=== PATIENT | female | born 1975 | race American Indian/Alaskan Native ===

== ENCOUNTER 2016-04-27 14:10 | Emergency (ER) | payer SELFPAY ==
[2016-04-27 15:32] LABS: Basophils % (Auto) 0.4 % (0.0-1.8); Eosinophils % (Auto) 0.3 % (0.0-4.3); Hematocrit 38.1 % (30.3-42.9); Hemoglobin 12.3 gm/dl (10.1-14.3); Mean Corpuscular HGB Conc 32 % (30-34); Mean Corpuscular Hemoglobin 27 pg (28-32); Mean Corpuscular Volume 84 fl (79-97); Platelet Count 194 K/mm3 (140-440); Red Blood Count 4.54 M/mm3 (3.65-5.03); Red Cell Distribution Width 13.8 % (13.2-15.2); White Blood Count 3.1 K/mm3 (4.5-11.0)
[2016-04-27 15:56] LABS: Alanine Aminotransferase 9 units/L (7-56); Albumin 3.8 g/dL (3.9-5); Albumin/Globulin Ratio 1.2 %; Alkaline Phosphatase 71 units/L (35-129); Anion Gap 17 mmol/L; BUN/Creatinine Ratio 11.42; Bilirubin,Total 0.5 mg/dL (0.1-1.2); Blood Urea Nitrogen 8 mg/dL (7-17); Calcium 8.8 mg/dL (8.4-10.2); Carbon Dioxide 22 mmol/L (22-30); Chloride 103.7 mmol/L (98-107); Glucose 89 mg/dL (65-100); Lipase 18 units/L (13-60); Potassium 3.7 mmol/L (3.6-5.0); Sodium 139 mmol/L (137-145)
[2016-04-27 17:12] LABS: Bilirubin,Urine NEG (Negative); Blood,Urine NEG (Negative); Ketones,Urine NEG (Negative); Leukocyte Esterase,Urine NEG (Negative); Mucus,Urine FEW /HPF; Nitrite,Urine NEG (Negative); Protein,Urine <15 mg/dL mg/dL (Negative); Urobilinogen,Urine < 2.0 mg/dL (<2.0); WBC,Urine < 1.0 /HPF (0.0-6.0)
--- NOTE | 2016-04-27 19:17 | Emergency Department Report ---
Chief Complaint: Abdominal Pain Stated Complaint: GURD/RT SIDE PAIN/ACID REFLUX Time Seen by Provider: 04/27/16 19:10 - HPI History of Present Illness: PT states she has a hx of Gerd. PT c/o R side pain x 1- 2 weeks. PT states she has tried putting muscle rub on her stomach. PT states she has been drinking tala tea and her symptoms have improved. - ROS Review of Systems: + wt loss - while in [facility]. PT states the food was "nasty" + anxiety - n/v - Exam Vital Signs: Vital Signs 04/27/16 04/27/16 14:54 18:53 Temperature 97.4 F L Pulse Rate 70 150 H Respiratory 16 22 Rate Blood Pressure 112/70 Blood Pressure 141/86 [Right] O2 Sat by Pulse 100 100 Oximetry Physical Exam: PT alert, anxious mildy tachycardic at this time lungs cta abd soft and non tender MSE screening note: Focused history and physical exam performed. Due to findings the following was ordered: labs ED Medical Decision Making - Lab Data Result diagrams: 04/27/16 15:20 04/27/16 15:20 ED Disposition for MSE Condition: Stable Instructions: Abdominal Pain (ED) Referrals: PRIMARY CARE, [Primary Care Provider] - 3-5 Days
[2016-04-27] MEDS ORDERED: NORCO 5/325 PO ONE (21:02)
[2016-04-27] MEDS ORDERED: PROTONIX PO ONE (21:02)
[2016-04-27] MEDS ORDERED: NACL 0.9% 500 ML 500 ML IV ONE (21:09)
[2016-04-27] MEDS ORDERED: VALIUM IV ONE (21:09)
[2016-04-27] MEDS ORDERED: PEPCID IV ONE (21:10)
--- NOTE | 2016-04-27 21:23 | Emergency Department Report ---
HPI - General Chief Complaint: Abdominal Pain Time Seen by Provider: 04/27/16 20:10 - HPI HPI: The patient is 40-year-old female presents for evaluation of abdominal pain. The patient reports epigastric abdominal pain since noon yesterday, 30 hrs prior to my eval, burning in quality, moderate to severe, radiating to the midsternal chest, and associated with loose watery stools. The patient denies fever, trauma to the chest or abdomen, chills, night sweats, vomiting, blood in the stool, dark tarry stool, dysuria, hematuria, flank pain, genital discharge, inability to pass flatus. ED Past Medical Hx - Past Medical History Previous Medical History?: Yes Hx GERD: Yes Hx Psychiatric Treatment: Yes (anxiety) - Surgical History Past Surgical History?: Yes - Social History Smoking Status: Never Smoker Substance Use Type: Alcohol - Medications Home Medications: Home Medications Medication Instructions Recorded Confirmed Last Taken Type Cyclobenzaprine HCl [Flexeril 5 MG 5 mg PO Q8HR PRN #15 tab 04/27/16 Unknown Rx TAB] Omeprazole Magnesium [PriLOSEC Otc] 20 mg PO QDAY #14 tablet. 04/27/16 Unknown Rx ED Review of Systems ROS: Stated complaint: GURD/RT SIDE PAIN/ACID REFLUX Other details as noted in HPI Constitutional: denies: fever ENT: denies: throat or neck pain Respiratory: denies: cough, shortness of breath Cardiovascular: denies: chest pain Endocrine: denies unexplained weight loss or gain Gastrointestinal: reports abdominal pain, nausea Genitourinary: denies: dysuria Musculoskeletal: denies: leg swelling Skin: denies: rash Neurological: denies: headache Hematological/Lymphatic: denies: easy bleeding or easy bruising Psych: denies sadness or hopelessness Physical Exam - Physical Exam Vital Signs: Vital Signs 04/27/16 04/27/16 04/27/16 14:54 18:53 21:00 Temperature 97.4 F L Pulse Rate 70 150 H Respiratory 16 22 20 Rate Blood Pressure 112/70 Blood Pressure 141/86 [Right] O2 Sat by Pulse 100 100 Oximetry 04/27/16 21:04 Temperature 98 F Pulse Rate 104 H Respiratory 18 Rate Blood Pressure Blood Pressure 115/58 [Right] O2 Sat by Pulse 100 Oximetry Physical Exam: General: well-nourished, well-developed, no acute distress Head: Normocephalic, atraumatic Eyes: normal sclera ENT: Mucous membranes are pale and dry Neck: trachea midline, neck supple, No neck stiffness, no cervical adenopathy Respiratory: Breath sounds equal bilaterally, no wheezing, rales, or rhonchi Cardio: S1 and S2 present, no murmurs, rubs, gallops, capillary refill is delayed Abdomen: Normoactive bowel sounds, soft abdomen, no rigidity, no guarding or rebound tenderness Musc: No pitting edema Skin: No rash Neuro: no facial drooping, normal speech Psych: Normal affect ED Course Vital Signs 04/27/16 04/27/16 04/27/16 14:54 18:53 21:00 Temperature 97.4 F L Pulse Rate 70 150 H Respiratory 16 22 20 Rate Blood Pressure 112/70 Blood Pressure 141/86 [Right] O2 Sat by Pulse 100 100 Oximetry 04/27/16 21:04 Temperature 98 F Pulse Rate 104 H Respiratory 18 Rate Blood Pressure Blood Pressure 115/58 [Right] O2 Sat by Pulse 100 Oximetry ED Medical Decision Making - Lab Data Result diagrams: 04/27/16 15:20 04/27/16 15:20 - Medical Decision Making The patient was seen and examined by myself. The patient is placed on a hotel valet attendant and continuous pulse ox. On initial evaluation, the patient was found to be in no distress. Evaluation orders were placed. The patient is given 500cc normal saline fluid bolus for treatment of dehydration, and Prilosec , and a tablet of Tylenol for her pain. Lab results reveal elevated RBC, hemoglobin and hematocrit, consistent with hemoconcentration and exam findings of dehydration, and otherwise labs were grossly unremarkable, including normal LFTs, lipase, and negative test. The patient was reevaluated and reported that their symptoms were markedly improved. The patient is stable for discharge with outpatient follow-up. The patient is given follow-up and return instructions. The patient expressed understanding and agreed with the plan. The patient is discharged in stable condition. Critical care attestation.: If time is entered above; I have spent that time in minutes in the direct care of this critically ill patient, excluding procedure time. ED Disposition Clinical Impression: Abdominal pain, acute, epigastric, Dehydration, Orthostatic dizziness Disposition: DISCHARGED TO HOME OR SELFCARE Is pt being admited?: No Does the pt Need Aspirin: No Condition: Stable Instructions: Abdominal Pain (ED), Diet for Ulcers and Gastritis (ED), Peptic Ulcer (ED), Gastritis (ED), Dizziness (ED), Dehydration (ED) Prescriptions: Cyclobenzaprine HCl [Flexeril 5 MG TAB] 5 mg PO Q8HR PRN #15 tab PRN Reason: Pain Omeprazole Magnesium [PriLOSEC Otc] 20 mg PO QDAY #14 tablet. Referrals: PRIMARY CARE, [Primary Care Provider] - 3-5 Days Time of Disposition: 21:14
[2016-04-27] MEDS ORDERED: TYLENOL ONE (22:11)
[2016-04-27] MEDS ORDERED: TYLENOL PO ONE (22:16)
[2016-04-27 23:24] VITALS: BP 125/77
== END 2016-04-27 23:25 | disposition home or self-care (01) ==
LOC: ED 14:10
DX: R10.13 Epigastric pain (principal); E86.0 Dehydration; R42 Dizziness and giddiness; K21.9 Gastro-esophageal reflux disease without esophagitis
CPT/HCPCS: 36415; 80053; 81001; 82962; 83690; 84443; 84484; 84703; 85025; 93005; 93010; 96361; 96374; 99285; J3360; J7040; 96360

== ENCOUNTER 2016-06-27 20:09 | Emergency (ER) | payer MEDICAID ==
[2016-06-27 20:26] VITALS: BP 128/54
[2016-06-27 20:51] LABS: Basophils % (Auto) 0.5 % (0.0-1.8); Hematocrit 40.2 % (30.3-42.9); Hemoglobin 13.1 gm/dl (10.1-14.3); Mean Corpuscular HGB Conc 33 % (30-34); Mean Corpuscular Hemoglobin 28 pg (28-32); Mean Corpuscular Volume 87 fl (79-97); Platelet Count 139 K/mm3 (140-440); Red Cell Distribution Width 14.8 % (13.2-15.2); White Blood Count 6.6 K/mm3 (4.5-11.0)
[2016-06-27 21:06] LABS: Anion Gap 18 mmol/L; BUN/Creatinine Ratio 14.28; Blood Urea Nitrogen 10 mg/dL (7-17); Carbon Dioxide 23 mmol/L (22-30); Chloride 103.7 mmol/L (98-107); Glucose 95 mg/dL (65-100); Potassium 4.3 mmol/L (3.6-5.0); Sodium 140 mmol/L (137-145)
== END 2016-06-28 00:18 | disposition left against medical advice (07) ==
LOC: ED 20:09
DX: R07.9 Chest pain, unspecified (principal); R00.2 Palpitations; Z53.21 Procedure and treatment not carried out due to patient leaving prior to being seen by health care provider
CPT/HCPCS: 36415; 80048; 80164; 84484; 85025; 93005; 93010

== ENCOUNTER 2016-06-29 22:28 | Emergency (ER) | payer MEDICAID ==
[2016-06-29 23:48] LABS: Anion Gap 18 mmol/L; Blood Urea Nitrogen 6 mg/dL (7-17); Carbon Dioxide 23 mmol/L (22-30); Chloride 96.9 mmol/L (98-107); Creatine Kinase 33 units/L (30-135); Creatine Kinase MB < 1.0 ng/mL (0.0-4.0); Glucose 120 mg/dL (65-100); Potassium 3.7 mmol/L (3.6-5.0); Sodium 134 mmol/L (137-145)
[2016-06-30 00:04] LABS: Basophils % (Auto) 0.4 % (0.0-1.8); Eosinophils % (Auto) 0.8 % (0.0-4.3); Hematocrit 39.9 % (30.3-42.9); Hemoglobin 12.8 gm/dl (10.1-14.3); Mean Corpuscular HGB Conc 32 % (30-34); Mean Corpuscular Hemoglobin 28 pg (28-32); Mean Corpuscular Volume 86 fl (79-97); Platelet Count 144 K/mm3 (140-440); Red Blood Count 4.64 M/mm3 (3.65-5.03); Red Cell Distribution Width 14.2 % (13.2-15.2); White Blood Count 6.4 K/mm3 (4.5-11.0)
--- NOTE | 2016-06-30 08:47 | Emergency Department Report ---
HPI - General Chief Complaint: Chest Pain Time Seen by Provider: 06/30/16 08:24 - HPI HPI: This is a 40-year-old -[place] female presents to the emergency department with complaint of a dull ache and/or fluttering in the midsternal right-sided chest that began last night. Patient says she is currently asymptomatic and that has resolved. She denies any shortness of breath, nausea , vomiting, diaphoresis. The patient is on Depakote, propanolol, Zoloft for anxiety and says that she takes these medications are keeping her from getting sleep. She has not had any good satiating sleep the past 6-7 days. She does have history of palpitations in the past. She denies tobacco or drug use or abuse. No recent travel or sick contacts at home. She does not currently have a primary care doctor. [facility] in [facility] for her psychiatric treatment thus far. She did not take anything for symptoms prior to presentation. ED Past Medical Hx - Past Medical History Previous Medical History?: Yes Hx GERD: Yes Hx Psychiatric Treatment: Yes (anxiety) Additional medical history: palpations - Surgical History Past Surgical History?: Yes Additional Surgical History: c-sectionx2. skin graft to head - Social History Smoking Status: Never Smoker Substance Use Type: None - Medications Home Medications: Home Medications Medication Instructions Recorded Confirmed Last Taken Type Cyclobenzaprine HCl [Flexeril 5 MG 5 mg PO Q8HR PRN #15 tab 04/27/16 Unknown Rx TAB] Omeprazole Magnesium [PriLOSEC Otc] 20 mg PO QDAY #14 tablet. 04/27/16 Unknown Rx ALPRAZolam [Xanax TAB] 0.5 mg PO QHS PRN #5 tablet 06/30/16 Unknown Rx ED Review of Systems ROS: Stated complaint: CHEST DISCOMFORT Other details as noted in HPI Comment: All other systems reviewed and negative Constitutional: denies: chills, fever Eyes: denies: eye pain, eye discharge, vision change ENT: denies: ear pain, throat pain Respiratory: denies: cough, shortness of breath, wheezing Cardiovascular: chest pain, palpitations Gastrointestinal: denies: abdominal pain, nausea, diarrhea Genitourinary: denies: urgency, dysuria, discharge Musculoskeletal: denies: back pain, joint swelling, arthralgia Skin: denies: rash, lesions Neurological: denies: headache, weakness, paresthesias Physical Exam - Physical Exam Vital Signs: Vital Signs 06/29/16 22:43 Temperature 98.1 F Pulse Rate 82 Respiratory 18 Rate Blood Pressure 125/77 Blood Pressure 125/77 [Left] O2 Sat by Pulse 100 Oximetry Physical Exam: GENERAL: The patient is well-developed well-nourished. HEENT: Normocephalic. Atraumatic. Extraocular motions are intact. Patient has moist mucous membranes. Pupils equal reactive to light bilaterally. NECK: Supple. Trachea is midline. CHEST/LUNGS: Clear to auscultation. There is no respiratory distress noted. HEART/CARDIOVASCULAR: Regular. There is no tachycardia. There is no gallop rub or murmur. ABDOMEN: Abdomen is soft, nontender. Patient has normal bowel sounds. There is no abdominal distention. SKIN: There is no rash. There is no edema. There is no diaphoresis. NEURO: The patient is awake, alert, and oriented. The patient is cooperative. The patient has no focal neurologic deficits. The patient has normal speech. Cranial nerves II through XII grossly intact. MUSCULOSKELETAL: There is no tenderness or deformity. There is no limitation range of motion. There is no evidence of acute injury. Radial pulse +2 over 4 bilaterally. ED Course Vital Signs 06/29/16 22:43 Temperature 98.1 F Pulse Rate 82 Respiratory 18 Rate Blood Pressure 125/77 Blood Pressure 125/77 [Left] O2 Sat by Pulse 100 Oximetry ED Medical Decision Making - Lab Data Result diagrams: 06/29/16 23:04 06/29/16 23:04 - EKG Data -: EKG Interpreted by Me EKG shows normal: sinus rhythm, axis, intervals, QRS complexes, ST-T waves Rate: normal - EKG Data When compared to previous EKG there are: previous EKG unavailable Interpretation: normal EKG - Radiology Data Radiology results: image reviewed interpreted by me: Chest x-ray did not show any acute process. Heart is normal shape and size. No effusions. No pneumothorax. No signs of pneumonia seen. - Medical Decision Making This is a 40-year-old female presents to the emergency department with complaint of some palpitations and/or a fluttering sensation that goes along with some recent insomnia. The patient has history of anxiety and is on multiple medications for it. She feels that these medications may be the reason for her insomnia but it also may be due to uncontrolled anxiety. Patient is asymptomatic by the time she is gotten to the emergency department. She denies any shortness of breath, actual chest pain, fever. Labs are unremarkable including no signs of infection, electrolyte abnormalities, renal insufficiency, glucose abnormalities. She has normal thyroid function. EKG is completely normal without ST elevation [place], dysrhythmia or ischemia. She was reevaluated multiple times for multiple hours and has remained stable without any further palpitations or any distress. Despite the fact the patient does not have any actual chest pain, she is a BERNARDA score of 0 and very low on the heart score criteria. Without any chest pain, tachycardia, hypoxia or shortness of breath, the patient appears low suspicion for a pulmonary embolism. She is low on the well's score criteria and negative on the pulmonary embolus rule out criteria. She appears safe for discharge home. She has referrals for primary care and psych. She will return to the ER with any worsening of her symptoms or any acute distress. - Differential Diagnosis hyperthyroidism, anxiety/panic, pneumonia Critical Care Time: No Critical care attestation.: If time is entered above; I have spent that time in minutes in the direct care of this critically ill patient, excluding procedure time. ED Disposition Clinical Impression: Palpitations, Fluttering sensation of heart Insomnia Qualifiers: Insomnia type: unspecified Qualified Code(s): G47.00 - Insomnia, unspecified Disposition: DISCHARGED TO HOME OR SELFCARE Is pt being admited?: No Condition: Stable Instructions: Palpitations (ED), Insomnia (ED) Additional Instructions: Please follow-up with a primary care doctor in the next few days. Follow-up with your psychiatrist so that you can talk to them about adjusting your anxiety medications. I have given you a very small amount of low-dose Xanax to take just before sleep to help you with nighttime anxiety and/or insomnia. Return to the emergency department immediately with any return of your palpitations, any chest discomfort or any acute distress. You've been prescribed a medication that is sedating. Therefore this medication cannot be mixed with alcohol, or taken prior to driving, working, or being responsible for children. Prescriptions: ALPRAZolam [Xanax TAB] 0.5 mg PO QHS PRN #5 tablet PRN Reason: Anxiety Referrals: PRIMARY CARE, [Primary Care Provider] - 3-5 Days TONY WELLS MD, PHD [Staff Physician] - 3-5 Days [facility] [Outside] - 3-5 Days [facility] [Outside] - 3-5 Days Time of Disposition: 11:16
--- NOTE | 2016-06-30 11:06 | XRay Report ---
CHEST ONE VIEW INDICATION: Chest pain. COMPARISON: None similar at this institution. FINDINGS: Portable, single, frontal chest radiograph demonstrates normal cardiomediastinal silhouette. Clear lungs. Unremarkable bones. Extrinsic EKG leads. CONCLUSION: No acute disease in the chest. Thank you for the opportunity to participate in this patient's care.
[2016-06-30 11:53] VITALS: BP 116/74
== END 2016-06-30 11:53 | disposition home or self-care (01) ==
LOC: ED 22:28
DX: R00.2 Palpitations (principal); G47.00 Insomnia, unspecified; I49.8 Other specified cardiac arrhythmias; K21.9 Gastro-esophageal reflux disease without esophagitis; F41.9 Anxiety disorder, unspecified
CPT/HCPCS: 36415; 71010; 80048; 82550; 82553; 84443; 85025; 93005; 93010; 99284

== ENCOUNTER 2016-07-01 03:35 | Emergency (ER) | payer MEDICAID ==
[2016-07-01 03:40] VITALS: BP 123/78
[2016-07-01 04:45] LABS: Basophils % (Auto) 0.6 % (0.0-1.8); Eosinophils % (Auto) 1.4 % (0.0-4.3); Hematocrit 38.8 % (30.3-42.9); Hemoglobin 12.8 gm/dl (10.1-14.3); Mean Corpuscular HGB Conc 33 % (30-34); Mean Corpuscular Hemoglobin 28 pg (28-32); Mean Corpuscular Volume 84 fl (79-97); Mean Platelet Volume 8.8 fl (6-12); Platelet Count 151 K/mm3 (140-440); Red Blood Count 4.61 M/mm3 (3.65-5.03); Red Cell Distribution Width 14.2 % (13.2-15.2); White Blood Count 5.6 K/mm3 (4.5-11.0)
[2016-07-01 04:46] LABS: Anion Gap 19 mmol/L; BUN/Creatinine Ratio 15.71; Blood Urea Nitrogen 11 mg/dL (7-17); Calcium 9.3 mg/dL (8.4-10.2); Carbon Dioxide 23 mmol/L (22-30); Chloride 99.9 mmol/L (98-107); Glucose 87 mg/dL (65-100); Partial Thromboplastin Time 29.2 Sec. (24.2-36.6); Potassium 3.7 mmol/L (3.6-5.0); Sodium 138 mmol/L (137-145)
[2016-07-01 04:47] LABS: INR 1.01 (0.87-1.13)
== END 2016-07-01 03:45 | disposition left against medical advice (07) ==
LOC: ED 03:35
DX: R42 Dizziness and giddiness (principal); M79.609 Pain in unspecified limb; R10.9 Unspecified abdominal pain; Z53.21 Procedure and treatment not carried out due to patient leaving prior to being seen by health care provider
CPT/HCPCS: 36415; 80048; 85025; 85610; 85730

== ENCOUNTER 2016-07-01 08:16 | Emergency (ER) | payer MEDICAID ==
[2016-07-01 09:15] LABS: Basophils % (Auto) 0.4 % (0.0-1.8); Eosinophils % (Auto) 1.6 % (0.0-4.3); Hematocrit 38.8 % (30.3-42.9); Hemoglobin 12.7 gm/dl (10.1-14.3); Mean Corpuscular HGB Conc 33 % (30-34); Mean Corpuscular Hemoglobin 28 pg (28-32); Mean Corpuscular Volume 86 fl (79-97); Platelet Count 152 K/mm3 (140-440); Red Blood Count 4.52 M/mm3 (3.65-5.03); Red Cell Distribution Width 14.5 % (13.2-15.2); White Blood Count 5.2 K/mm3 (4.5-11.0)
[2016-07-01 09:17] LABS: Anion Gap 16 mmol/L; BUN/Creatinine Ratio 14.28; Blood Urea Nitrogen 10 mg/dL (7-17); Calcium 9.1 mg/dL (8.4-10.2); Carbon Dioxide 25 mmol/L (22-30); Chloride 99.4 mmol/L (98-107); Glucose 90 mg/dL (65-100); Potassium 3.4 mmol/L (3.6-5.0); Sodium 137 mmol/L (137-145)
[2016-07-01 12:11] LABS: Urine Drugs of Abuse Note Disclamer
[2016-07-01 12:32] LABS: Bilirubin,Urine NEG (Negative); Blood,Urine LG (Negative); Ketones,Urine TR mg/dL (Negative); Leukocyte Esterase,Urine NEG (Negative); Nitrite,Urine NEG (Negative); Protein,Urine <15 mg/dL mg/dL (Negative); RBC,Urine > 182.0 /HPF (0.0-6.0); Urobilinogen,Urine < 2.0 mg/dL (<2.0)
--- NOTE | 2016-07-01 14:51 | Emergency Department Report ---
ED Abdominal Pain HPI - General Chief Complaint: Abdominal Pain Stated Complaint: LEFT AND RT LEG CHEST DISCOMFORT Time Seen by Provider: 07/01/16 14:40 Source: patient, EMS Mode of arrival: Ambulatory Limitations: No Limitations - History of Present Illness MD Complaint: abdominal pain -: Gradual Location: diffuse, RUQ Radiation: none Migration to: no migration Severity: mild Severity scale (0 -10): 2 Quality: cramping Consistency: intermittent Improves With: nothing Worsens With: nothing Associated Symptoms: denies: nausea, vomiting, diarrhea, fever, chills, constipation, dysuria, hematemesis, melena, hematuria, anorexia, syncope - Related Data Home Medications Medication Instructions Recorded Confirmed Last Taken Divalproex Dr [DepaKOTE DR] 500 mg PO QHS 07/01/16 07/01/16 06/30/16 Propranolol [Inderal] 10 mg PO ONCE 07/01/16 07/01/16 07/01/16 Sertraline [Zoloft] 25 mg PO QDAY 07/01/16 07/01/16 07/01/16 Allergies Allergy/AdvReac Type Severity Reaction Status Date / Time paroxetine HCl [From Paxil] Allergy Itching Verified 06/29/16 22:49 Penicillins Allergy Swelling Verified 06/29/16 22:49 ED Review of Systems ROS: Stated complaint: LEFT AND RT LEG CHEST DISCOMFORT Other details as noted in HPI Comment: All other systems reviewed and negative ED Past Medical Hx - Past Medical History Previous Medical History?: Yes Hx GERD: Yes Hx Psychiatric Treatment: Yes (anxiety) Additional medical history: palpations - Surgical History Past Surgical History?: Yes Additional Surgical History: c-sectionx2. skin graft to head - Social History Smoking Status: Never Smoker Substance Use Type: Alcohol, Prescribed - Medications Home Medications: Home Medications Medication Instructions Recorded Confirmed Last Taken Type Divalproex Dr [DepaKOTE DR] 500 mg PO QHS 07/01/16 07/01/16 06/30/16 History Propranolol [Inderal] 10 mg PO ONCE 07/01/16 07/01/16 07/01/16 History Sertraline [Zoloft] 25 mg PO QDAY 07/01/16 07/01/16 07/01/16 History ED Physical Exam - General Limitations: No Limitations General appearance: alert, in no apparent distress - Head Head exam: Present: atraumatic, normocephalic - Eye Eye exam: Present: normal appearance - ENT ENT exam: Present: mucous membranes moist - Neck Neck exam: Present: normal inspection - Respiratory Respiratory exam: Present: normal lung sounds bilaterally. Absent: respiratory distress - Cardiovascular Cardiovascular Exam: Present: regular rate, normal rhythm. Absent: systolic murmur, diastolic murmur, rubs, gallop - GI/Abdominal GI/Abdominal exam: Present: soft, normal bowel sounds. Absent: distended, tenderness, guarding, rebound - Extremities Exam Extremities exam: Present: normal inspection - Back Exam Back exam: Present: normal inspection - Neurological Exam Neurological exam: Present: alert, oriented X3 - Psychiatric Psychiatric exam: Present: normal affect, normal mood - Skin Skin exam: Present: warm, dry, intact, normal color. Absent: rash ED Course Vital Signs 07/01/16 08:36 Temperature 97.5 F L Pulse Rate 81 Respiratory 28 H Rate Blood Pressure 134/90 O2 Sat by Pulse 100 Oximetry ED Medical Decision Making - Lab Data Result diagrams: 07/01/16 08:47 07/01/16 08:47 - Radiology Data Radiology results: report reviewed, image reviewed - Medical Decision Making patient with her 4th visit for similar complaints, exam is benign and labs and US are normal, we talked and even offer admission but she wants to go home and follow up as outpatient,. Critical care attestation.: If time is entered above; I have spent that time in minutes in the direct care of this critically ill patient, excluding procedure time. ED Disposition Clinical Impression: Abdominal pain Disposition: DISCHARGED TO HOME OR SELFCARE Is pt being admited?: No Does the pt Need Aspirin: No Condition: Good Instructions: Abdominal Pain (ED) Referrals: PRIMARY CARE, [Primary Care Provider] - 3-5 Days Time of Disposition: 16:43
--- NOTE | 2016-07-01 15:47 | Ultrasound Report ---
ABDOMINAL ULTRASOUND: History: Right upper quadrant pain. Findings: The gallbladder dimensions are within normal limits without intraluminal stone, wall thickening, or pericholecystic fluid. The kidneys demonstrate no hydronephrosis or mass. Cortical thickness and echogenicity are within normal limits bilaterally. The spleen and aorta are within normal limits. No aneurysmal dilatation is noted. Visualized portions of the pancreas including the head and proximal body are within normal limits. IMPRESSION: Normal abdominal ultrasound.
[2016-07-01 17:35] VITALS: BP 132/86
== END 2016-07-01 17:36 | disposition home or self-care (01) ==
LOC: ED 08:16
DX: R10.11 Right upper quadrant pain (principal); K21.9 Gastro-esophageal reflux disease without esophagitis; F41.9 Anxiety disorder, unspecified; Z88.0 Allergy status to penicillin; Z88.8 Allergy status to other drugs, medicaments and biological substances
CPT/HCPCS: 36415; 76700; 80048; 80307; 81001; 81025; 85025; 99284; G0480; 80320; 85610; 85730

== ENCOUNTER 2016-07-07 21:33 | Emergency (ER) | payer MEDICAID ==
[2016-07-07 22:25] LABS: Basophils % (Auto) 0.6 % (0.0-1.8); Eosinophils % (Auto) 2.5 % (0.0-4.3); Hematocrit 37.6 % (30.3-42.9); Hemoglobin 12.4 gm/dl (10.1-14.3); Mean Corpuscular HGB Conc 33 % (30-34); Mean Corpuscular Hemoglobin 29 pg (28-32); Mean Corpuscular Volume 86 fl (79-97); Platelet Count 185 K/mm3 (140-440); Red Blood Count 4.36 M/mm3 (3.65-5.03); Red Cell Distribution Width 14.3 % (13.2-15.2); White Blood Count 4.1 K/mm3 (4.5-11.0)
[2016-07-07 22:45] LABS: Anion Gap 18 mmol/L; BUN/Creatinine Ratio 12.85; Blood Urea Nitrogen 9 mg/dL (7-17); Calcium 8.5 mg/dL (8.4-10.2); Carbon Dioxide 22 mmol/L (22-30); Chloride 103.5 mmol/L (98-107); Glucose 95 mg/dL (65-100); Potassium 4.1 mmol/L (3.6-5.0); Sodium 139 mmol/L (137-145)
--- NOTE | 2016-07-08 08:58 | Emergency Department Report ---
ED General Adult HPI - General Chief complaint: Chest Pain Stated complaint: RAPID HEART BEAT/PAIN Time Seen by Provider: 07/08/16 08:20 Source: patient Mode of arrival: Ambulatory Limitations: No Limitations - History of Present Illness Initial comments: Patient tells me that she is planning to go over to [facility]. She's had modification of her psychiatric medications recently to include changes in her Depakote for a "mood disorder". She is also on Zoloft primarily for anxiety she states. She states that she was recently decreased in her propranolol dosing. She believes that the decrease in her medicines is now making her heart race. 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 She is still concerned that her heart is racing. She tells me that she felt a very brief chest discomfort in the left lateral chest which did not radiate last night. She is not complaining of any nausea sweating diaphoresis dizziness or respiratory symptoms at this time. -: days(s) (concern about heart racing for less than a day) Location: chest (had chest pain for less than a minute) Radiation: non-radiation Quality: aching Consistency: now resolved Improves with: none Worsens with: none Associated Symptoms: denies other symptoms (except admits anxiety) - Related Data Home Medications Medication Instructions Recorded Confirmed Last Taken Divalproex Dr [DepaKOTE DR] 500 mg PO QHS 07/01/16 07/01/16 06/30/16 Propranolol [Inderal] 10 mg PO ONCE 07/01/16 07/01/16 07/01/16 Sertraline [Zoloft] 25 mg PO QDAY 07/01/16 07/01/16 07/01/16 Previous Rx's Medication Instructions Recorded Last Taken Type Nitrofurantoin [place]/M-Cryst 100 mg PO Q12HR #14 capsule 07/01/16 Unknown Rx [Macrobid CAP] Allergies Allergy/AdvReac Type Severity Reaction Status Date / Time paroxetine HCl [From Paxil] Allergy Itching Verified 06/29/16 22:49 Penicillins Allergy Swelling Verified 06/29/16 22:49 ED Review of Systems ROS: Stated complaint: RAPID HEART BEAT/PAIN Other details as noted in HPI Constitutional: denies: chills, fever Eyes: denies: eye pain, eye discharge, vision change ENT: denies: ear pain, throat pain Respiratory: denies: cough, shortness of breath, wheezing Cardiovascular: chest pain, palpitations Endocrine: no symptoms reported Gastrointestinal: denies: abdominal pain, nausea, diarrhea Genitourinary: denies: urgency, dysuria, discharge Musculoskeletal: denies: back pain, joint swelling, arthralgia Skin: denies: rash, lesions Neurological: denies: headache, weakness, paresthesias Psychiatric: denies: anxiety, depression Hematological/Lymphatic: denies: easy bleeding, easy bruising ED Past Medical Hx - Past Medical History Previous Medical History?: Yes Hx GERD: Yes Hx Psychiatric Treatment: Yes (anxiety) Additional medical history: palpations - Surgical History Past Surgical History?: Yes Additional Surgical History: c-sectionx2. skin graft to head - Social History Smoking Status: Never Smoker Substance Use Type: None - Medications Home Medications: Home Medications Medication Instructions Recorded Confirmed Last Taken Type Divalproex Dr [DepaKOTE DR] 500 mg PO QHS 07/01/16 07/01/16 06/30/16 History Nitrofurantoin [place]/M-Cryst 100 mg PO Q12HR #14 capsule 07/01/16 Unknown Rx [Macrobid CAP] Propranolol [Inderal] 10 mg PO ONCE 07/01/16 07/01/16 07/01/16 History Sertraline [Zoloft] 25 mg PO QDAY 07/01/16 07/01/16 07/01/16 History ED Physical Exam - General Limitations: No Limitations General appearance: alert, in no apparent distress, anxious - Head Head exam: Present: atraumatic, normocephalic - Eye Eye exam: Present: normal appearance. Absent: scleral icterus - ENT ENT exam: Present: mucous membranes moist - Neck Neck exam: Present: normal inspection - Respiratory Respiratory exam: Present: normal lung sounds bilaterally. Absent: respiratory distress - Cardiovascular Cardiovascular Exam: Present: regular rate, normal rhythm. Absent: systolic murmur, diastolic murmur, rubs, gallop - GI/Abdominal GI/Abdominal exam: Present: soft, normal bowel sounds. Absent: distended, tenderness, guarding, rebound, rigid - Extremities Exam Extremities exam: Present: normal inspection, full ROM, normal capillary refill. Absent: pedal edema, calf tenderness - Back Exam Back exam: Present: normal inspection - Neurological Exam Neurological exam: Present: alert, oriented X3, CN II-XII intact. Absent: motor sensory deficit - Psychiatric Psychiatric exam: Present: normal affect, normal mood - Skin Skin exam: Present: warm, dry, intact, normal color. Absent: rash ED Course Vital Signs 07/07/16 07/08/16 07/08/16 22:08 08:19 08:20 Temperature 97.6 F Pulse Rate 63 58 L Respiratory 20 12 11 L Rate Blood Pressure 127/76 O2 Sat by Pulse 100 100 Oximetry 07/08/16 08:34 Temperature Pulse Rate Respiratory 11 L Rate Blood Pressure O2 Sat by Pulse 100 Oximetry - Reevaluation(s) Reevaluation #1: Patient without chest pain this morning. Resting comfortably. Has a tendency to repeatedly stare at the monitor. Mildly anxious. 07/08/16 09:38 ED Medical Decision Making - Lab Data Result diagrams: 07/07/16 22:17 07/07/16 22:17 Laboratory Results - last 24 hr 07/07/16 07/07/16 07/08/16 22:17 22:17 02:01 WBC 4.1 L RBC 4.36 Hgb 12.4 Hct 37.6 MCV 86 MCH 29 MCHC 33 RDW 14.3 Plt Count 185 Lymph % (Auto) 33.9 [place] % (Auto) 12.9 H Eos % (Auto) 2.5 Baso % (Auto) 0.6 Lymph # 1.4 [place] # 0.5 Eos # 0.1 Baso # 0.0 Seg Neutrophils % 50.1 Seg Neutrophils # 2.0 Sodium 139 Potassium 4.1 Chloride 103.5 Carbon Dioxide 22 Anion Gap 18 BUN 9 Creatinine 0.7 Estimated GFR > 60 BUN/Creatinine Ratio 12.85 Glucose 95 Calcium 8.5 Troponin T < 0.010 < 0.010 07/08/16 04:11 WBC RBC Hgb Hct MCV MCH MCHC RDW Plt Count Lymph % (Auto) [place] % (Auto) Eos % (Auto) Baso % (Auto) Lymph # [place] # Eos # Baso # Seg Neutrophils % Seg Neutrophils # Sodium Potassium Chloride Carbon Dioxide Anion Gap BUN Creatinine Estimated GFR BUN/Creatinine Ratio Glucose Calcium Troponin T < 0.010 - EKG Data -: EKG Interpreted by [place] EKG shows normal: sinus rhythm, axis, intervals, QRS complexes, ST-T waves Rate: normal - EKG Data Interpretation: no acute changes Critical care attestation.: If time is entered above; I have spent that time in minutes in the direct care of this critically ill patient, excluding procedure time. ED Disposition Clinical Impression: Anxiety, Palpitations Disposition: DISCHARGED TO HOME OR SELFCARE Is pt being admited?: No Does the pt Need Aspirin: No Condition: Stable Instructions: Palpitations (ED), Anxiety (ED) Additional Instructions: Return any acute change or problem as needed. Follow-up with your mental health provider at [place]. I am also going to give you some information about the primary care clinic nearby. Referrals: PRIMARY MD ARMEN [Primary Care Provider] - 3-5 Days [facility] [Provider Group] - 3-5 Days Time of Disposition: 09:40
[2016-07-08 09:44] VITALS: BP 115/70
== END 2016-07-08 09:44 | disposition home or self-care (01) ==
LOC: ED 21:33
DX: F41.9 Anxiety disorder, unspecified (principal); K21.9 Gastro-esophageal reflux disease without esophagitis; Z88.0 Allergy status to penicillin; Z88.8 Allergy status to other drugs, medicaments and biological substances
CPT/HCPCS: 36415; 80048; 84484; 85025; 93005; 93010

== ENCOUNTER 2016-07-11 07:46 | Emergency (ER) | payer MEDICAID ==
[2016-07-11 08:50] LABS: Alanine Aminotransferase 11 units/L (7-56); Albumin/Globulin Ratio 1.5 %; Alkaline Phosphatase 61 units/L (35-129); Anion Gap 16 mmol/L; BUN/Creatinine Ratio 13.33; Blood Urea Nitrogen 8 mg/dL (7-17); Calcium 8.9 mg/dL (8.4-10.2); Carbon Dioxide 27 mmol/L (22-30); Chloride 102.8 mmol/L (98-107); Glucose 102 mg/dL (65-100); Lipase 17 units/L (13-60); Potassium 3.9 mmol/L (3.6-5.0); Sodium 142 mmol/L (137-145); Total Protein 6.7 g/dL (6.3-8.2)
[2016-07-11 08:52] LABS: Basophils % (Auto) 0.5 % (0.0-1.8); Eosinophils % (Auto) 2.6 % (0.0-4.3); Hematocrit 38.6 % (30.3-42.9); Hemoglobin 12.4 gm/dl (10.1-14.3); Mean Corpuscular HGB Conc 32 % (30-34); Mean Corpuscular Hemoglobin 28 pg (28-32); Mean Corpuscular Volume 86 fl (79-97); Platelet Count 182 K/mm3 (140-440); Red Blood Count 4.49 M/mm3 (3.65-5.03); Red Cell Distribution Width 14.4 % (13.2-15.2); White Blood Count 3.3 K/mm3 (4.5-11.0)
[2016-07-11 08:58] LABS: Bilirubin,Urine NEG (Negative); Blood,Urine NEG (Negative); Ketones,Urine NEG (Negative); Leukocyte Esterase,Urine NEG (Negative); Mucus,Urine FEW /HPF; Nitrite,Urine NEG (Negative); Protein,Urine <15 mg/dL mg/dL (Negative); Urobilinogen,Urine < 2.0 mg/dL (<2.0)
--- NOTE | 2016-07-11 10:33 | Emergency Department Report ---
HPI - General Chief Complaint: Abdominal Pain Time Seen by Provider: 07/11/16 10:21 - HPI HPI: Room 1 The patient is a 40-year-old female presenting with a chief complaint of abdominal pain. Patient states for the past several months she's had intermittent pain in the right lower quadrant but has never sought medical attention. Patient states pain returned last night has been intermittent. Patient states it resolved last night however when she awakened this morning the pain returned. Patient states it made her feel dizzy and nauseous. Patient describes the pain as pressure-like and sharp in nature. Patient denies dysuria, hematuria, vaginal discharge or fever. The patient currently gives her pain a score of 5/10 Location: Right lower quadrant Duration: Intermittent times months Quality:, Sharp, Pressure Severity: 5/10 Modifying factors: [see above] Context: [see above] Mode of transportation: [not driving] ED Past Medical Hx - Past Medical History Previous Medical History?: Yes Hx GERD: Yes Hx Psychiatric Treatment: Yes (anxiety) Additional medical history: palpations, ovarian cyst - Surgical History Past Surgical History?: Yes Additional Surgical History: c-sectionx2. skin graft to head - Family History Family history: no significant - Social History Smoking Status: Former Smoker (none 5-6 years) Substance Use Type: None (denies illicit drug use), Alcohol (none 2 years), Prescribed - Medications Home Medications: Home Medications Medication Instructions Recorded Confirmed Last Taken Type Divalproex [Perez MENDEZ] 500 mg PO QHS 07/01/16 07/01/16 06/30/16 History Nitrofurantoin [place]/M-Cryst 100 mg PO Q12HR #14 capsule 07/01/16 Unknown Rx [Macrobid CAP] Propranolol [Inderal] 10 mg PO ONCE 07/01/16 07/01/16 07/01/16 History Sertraline [Zoloft] 25 mg PO QDAY 07/01/16 07/01/16 07/01/16 History HYDROcodone/APAP 5-325 [[place] 1 - 2 each PO Q6HR PRN #14 tablet 07/11/16 Unknown Rx 5/325] Ibuprofen [Motrin 800 MG tab] 800 mg PO Q8HR PRN #20 tablet 07/11/16 Unknown Rx ED Review of Systems ROS: Stated complaint: STOMACH PAIN/DIZZY Other details as noted in HPI Comment: All other systems reviewed and negative Constitutional: denies: chills, fever Eyes: denies: eye pain, eye discharge, vision change ENT: denies: ear pain, throat pain Respiratory: denies: cough, shortness of breath, wheezing Cardiovascular: denies: chest pain, palpitations Endocrine: no symptoms reported Gastrointestinal: abdominal pain, nausea. denies: vomiting Genitourinary: abnormal menses (LMP 07/03/2016 earlier than anticipated). denies: urgency, dysuria, hematuria, discharge Musculoskeletal: denies: back pain, joint swelling, arthralgia Skin: denies: rash, lesions Neurological: denies: headache, weakness, paresthesias Psychiatric: denies: anxiety, depression Hematological/Lymphatic: denies: easy bleeding, easy bruising Physical Exam - Physical Exam Vital Signs: Vital Signs 07/11/16 07/11/16 08:05 10:22 Temperature 98 F Pulse Rate 66 61 Respiratory 18 20 Rate Blood Pressure 112/67 Blood Pressure 119/57 [Right] O2 Sat by Pulse 100 100 Oximetry Physical Exam: GENERAL: The patient is well-developed well-nourished female lying on stretcher not appearing to be in acute distress. [] HEENT: Normocephalic. Atraumatic. Extraocular motions are intact. Patient has moist mucous membranes. NECK: Supple. Trachea midline CHEST/LUNGS: Clear to auscultation. There is no respiratory distress noted. HEART/CARDIOVASCULAR: Regular. There is no tachycardia. There is no gallop rub or murmur. ABDOMEN: Abdomen is soft, with tenderness to palpation in the right lower quadrant and suprapubic region. Patient has normal bowel sounds. There is no abdominal distention. SKIN: There is no rash. There is no edema. There is no diaphoresis. NEURO: The patient is awake, alert, and oriented. The patient is cooperative. The patient has normal speech MUSCULOSKELETAL: There is no evidence of acute injury. ED Course Vital Signs 07/11/16 07/11/16 08:05 10:22 Temperature 98 F Pulse Rate 66 61 Respiratory 18 20 Rate Blood Pressure 112/67 Blood Pressure 119/57 [Right] O2 Sat by Pulse 100 100 Oximetry - Reevaluation(s) Reevaluation #1: 07/11/16 12:13 Patient states she currently feels "fine." ED Medical Decision Making - Lab Data Result diagrams: 07/11/16 08:18 07/11/16 08:18 Laboratory Tests 07/11/16 07/11/16 07/11/16 08:18 08:18 08:20 WBC 3.3 L RBC 4.49 Hgb 12.4 Hct 38.6 MCV 86 MCH 28 MCHC 32 RDW 14.4 Plt Count 182 Lymph % (Auto) 32.1 [place] % (Auto) 8.6 H Eos % (Auto) 2.6 Baso % (Auto) 0.5 Lymph # 1.1 L [place] # 0.3 Eos # 0.1 Baso # 0.0 Seg Neutrophils % 56.2 Seg Neutrophils # 1.9 Sodium 142 Potassium 3.9 Chloride 102.8 Carbon Dioxide 27 Anion Gap 16 BUN 8 Creatinine 0.6 L Estimated GFR > 60 BUN/Creatinine Ratio 13.33 Glucose 102 H Calcium 8.9 Total Bilirubin 0.40 AST 12 ALT 11 Alkaline Phosphatase 61 Total Protein 6.7 Albumin 4.0 Albumin/Globulin Ratio 1.5 Lipase 17 Urine Color Yellow Urine Turbidity Clear Urine pH 7.0 Ur Specific [place] 1.013 Urine Protein <15 mg/dl Urine Glucose (UA) Neg Urine Ketones Neg Urine Blood Neg Urine Nitrite Neg Urine Bilirubin Neg Urine Urobilinogen < 2.0 Ur Leukocyte Esterase Neg Urine WBC (Auto) 1.0 Urine RBC (Auto) 4.0 U Epithel Cells (Auto) 1.0 Urine Mucus Few Urine HCG, Qual 07/11/16 10:00 WBC RBC Hgb Hct MCV MCH MCHC RDW Plt Count Lymph % (Auto) [place] % (Auto) Eos % (Auto) Baso % (Auto) Lymph # [place] # Eos # Baso # Seg Neutrophils % Seg Neutrophils # Sodium Potassium Chloride Carbon Dioxide Anion Gap BUN Creatinine Estimated GFR BUN/Creatinine Ratio Glucose Calcium Total Bilirubin AST ALT Alkaline Phosphatase Total Protein Albumin Albumin/Globulin Ratio Lipase Urine Color Urine Turbidity Urine pH Ur Specific [place] Urine Protein Urine Glucose (UA) Urine Ketones Urine Blood Urine Nitrite Urine Bilirubin Urine Urobilinogen Ur Leukocyte Esterase Urine WBC (Auto) Urine RBC (Auto) U Epithel Cells (Auto) Urine Mucus Urine HCG, Qual Negative - Radiology Data Radiology results: report reviewed (CT abdomen and pelvis), image reviewed (CT abdomen and pelvis) CT abdomen and pelvis (read by radiologist)- cyst right adnexa. Moderate amount of fluid in the cul-de-sac. The appendix appears unremarkable. - Differential Diagnosis , ectopic , ovarian cyst, appendicitis Critical care attestation.: If time is entered above; I have spent that time in minutes in the direct care of this critically ill patient, excluding procedure time. ED Disposition Clinical Impression: Ovarian cyst, right Disposition: DISCHARGED TO HOME OR SELFCARE Is pt being admited?: No Does the pt Need Aspirin: No Condition: Stable Instructions: Abdominal Pain (ED), Ovarian Cyst (ED) Additional Instructions: Return to the emergency department immediately should you develop worsening symptoms, fever, inability to tolerate food or liquid or any other concerns. Prescriptions: HYDROcodone/APAP 5-325 [[place] 5/325] 1 - 2 each PO Q6HR PRN #14 tablet PRN Reason: Pain Ibuprofen [Motrin 800 MG tab] 800 mg PO Q8HR PRN #20 tablet PRN Reason: Pain Referrals: PRIMARY CARE,MD [Primary Care Provider] - 3-5 Days your, [facility] [Other] - [place] Time of Disposition: 12:16
[2016-07-11] MEDS ORDERED: MORPHINE IV ONE (10:40)
[2016-07-11] MEDS ORDERED: ZOFRAN IV ONE (10:40)
[2016-07-11] MEDS ORDERED: NACL ONE (10:41)
--- NOTE | 2016-07-11 12:06 | Cat Scan Report ---
CT scan abdomen pelvis with IV contrast: History: Right lower quadrant abdominal pain. Findings: Normal lung bases. No pleural or pericardial effusion. Normal liver spleen pancreas and gallbladder. Normal adrenals and kidney parenchyma and bladder. Moderate amount of fluid noted in the right side of the posterior cul-de-sac. There is a small cyst identified at the right adnexa measuring 1.4 cm in diameter. The appendix appears unremarkable. No evidence of appendicitis. No evidence of diverticulitis. Gaseous colon with small volume stool in colon. No bowel distention. Impression: Cyst right adnexa. Moderate amount of fluid in the cul-de-sac.
[2016-07-11 13:05] VITALS: BP 119/64
== END 2016-07-11 13:06 | disposition home or self-care (01) ==
LOC: ED 07:46
DX: N83.201 Unspecified ovarian cyst, right side (principal); K21.9 Gastro-esophageal reflux disease without esophagitis; Z87.891 Personal history of nicotine dependence
CPT/HCPCS: 36415; 74177; 80053; 81001; 81025; 83690; 85025; 99284; J2270; J2405; Q9967

== ENCOUNTER 2016-07-14 09:02 | Emergency (ER) | payer MEDICAID ==
[2016-07-14 09:33] VITALS: BP 116/73
--- NOTE | 2016-07-14 09:34 | Emergency Department Report ---
ED Anxiety HPI - General Chief Complaint: Anxiety Stated Complaint: RAPID HEART RATE/HBP Time Seen by Provider: 07/14/16 09:30 Source: patient Mode of arrival: Ambulatory Limitations: No Limitations - History of Present Illness Initial Comments: She states she's been checking her vital signs at home with wrist blood pressure cuff, and is worried that her blood pressure and her heart rate are elevated because she's being weaned down off of her Zoloft medication. Patient denies any suicidal/homicidal thoughts or ideation also denies any auditory or visual hallucinations. Patient denies chest pain, nausea vomiting, diaphoresis , or shortness of breath. Patient now states that she feels that her blood pressure is normal and heart rate is normal, but gets intermittent episodes with her elevated. MD Complaint: anxiety -: Sudden Symptoms: other (anxious because patient is being weaned off of her meds.) Quality: intermittant, improving Associated symptoms: shortness of breath, palpitations. denies: diaphoresis - Related Data Home Medications: Home Medications Medication Instructions Recorded Confirmed Last Taken Divalproex Dr [DepaKOTE DR] 500 mg PO QHS 07/01/16 07/01/16 06/30/16 Propranolol [Inderal] 10 mg PO ONCE 07/01/16 07/01/16 07/01/16 Sertraline [Zoloft] 25 mg PO QDAY 07/01/16 07/01/16 07/01/16 Previous Rx's Medication Instructions Recorded Last Taken Type Nitrofurantoin [place]/M-Cryst 100 mg PO Q12HR #14 capsule 07/01/16 Unknown Rx [Macrobid CAP] HYDROcodone/APAP 5-325 [[place] 1 - 2 each PO Q6HR PRN #14 tablet 07/11/16 Unknown Rx 5/325] Ibuprofen [Motrin 800 MG tab] 800 mg PO Q8HR PRN #20 tablet 07/11/16 Unknown Rx Allergies/Adverse Reactions: Allergies Allergy/AdvReac Type Severity Reaction Status Date / Time paroxetine HCl [From Paxil] Allergy Itching Verified 07/11/16 10:48 Penicillins Allergy Swelling Verified 07/11/16 10:48 ED Review of Systems ROS: Stated complaint: RAPID HEART RATE/HBP Other details as noted in HPI Constitutional: denies: chills, fever Eyes: denies: eye pain, eye discharge, vision change ENT: denies: ear pain, throat pain Respiratory: denies: cough, orthopnea, shortness of breath, SOB with exertion, SOB at rest, wheezing Cardiovascular: palpitations. denies: chest pain, edema, syncope, paroxysmal nocturnal dyspnea (Zoloft) Endocrine: no symptoms reported Gastrointestinal: denies: abdominal pain, nausea, vomiting, diarrhea, constipation Genitourinary: denies: urgency, dysuria, discharge Musculoskeletal: denies: back pain, joint swelling, arthralgia Skin: denies: rash, lesions Neurological: denies: headache, weakness, numbness, paresthesias, confusion, abnormal gait, vertigo Psychiatric: anxiety. denies: depression, auditory hallucinations, visual hallucinations, homicidal thoughts, suicidal thoughts Hematological/Lymphatic: denies: easy bleeding, easy bruising ED Past Medical Hx - Past Medical History Previous Medical History?: Yes Hx GERD: Yes Hx Psychiatric Treatment: Yes (anxiety) Additional medical history: palpations, ovarian cyst - Surgical History Past Surgical History?: Yes Additional Surgical History: c-sectionx2. skin graft to head - Social History Smoking Status: Current Every Day Smoker Substance Use Type: Alcohol, Prescribed - Medications Home Medications: Home Medications Medication Instructions Recorded Confirmed Last Taken Type Divalproex Dr [DepaKOTE DR] 500 mg PO QHS 07/01/16 07/01/16 06/30/16 History Nitrofurantoin [place]/M-Cryst 100 mg PO Q12HR #14 capsule 07/01/16 Unknown Rx [Macrobid CAP] Propranolol [Inderal] 10 mg PO ONCE 07/01/16 07/01/16 07/01/16 History Sertraline [Zoloft] 25 mg PO QDAY 07/01/16 07/01/16 07/01/16 History HYDROcodone/APAP 5-325 [[place] 1 - 2 each PO Q6HR PRN #14 tablet 07/11/16 Unknown Rx 5/325] Ibuprofen [Motrin 800 MG tab] 800 mg PO Q8HR PRN #20 tablet 07/11/16 Unknown Rx ED Physical Exam - General Limitations: No Limitations General appearance: alert, in no apparent distress - Head Head exam: Present: atraumatic, normocephalic - Eye Eye exam: Present: normal appearance, PERRL, EOMI Pupils: Present: normal accommodation - ENT ENT exam: Present: normal exam, mucous membranes moist - Neck Neck exam: Present: normal inspection. Absent: tenderness, meningismus, full ROM, lymphadenopathy - Respiratory Respiratory exam: Present: normal lung sounds bilaterally. Absent: respiratory distress, wheezes, rales, rhonchi, stridor, chest wall tenderness, accessory muscle use, decreased breath sounds, prolonged expiratory - Cardiovascular Cardiovascular Exam: Present: regular rate, normal rhythm. Absent: systolic murmur, diastolic murmur, rubs, gallop - GI/Abdominal GI/Abdominal exam: Present: soft. Absent: distended, tenderness, guarding - Extremities Exam Extremities exam: Present: normal inspection. Absent: pedal edema - Back Exam Back exam: Present: normal inspection, full ROM - Neurological Exam Neurological exam: Present: alert, oriented X3, CN II-XII intact. Absent: altered - Psychiatric Psychiatric exam: Present: normal affect, normal mood. Absent: depressed, agitated - Skin Skin exam: Present: warm, dry, intact, normal color. Absent: rash ED Course Vital Signs 07/14/16 07/14/16 09:18 09:33 Temperature 98.2 F Pulse Rate 83 67 Respiratory 20 16 Rate Blood Pressure 132/66 Blood Pressure 116/73 [Left] O2 Sat by Pulse 100 100 Oximetry - Reevaluation(s) Reevaluation #1: 07/14/16 10:07 normotensive normocardic, behavior nonsuicidal or homicidal.... Critical care attestation.: If time is entered above; I have spent that time in minutes in the direct care of this critically ill patient, excluding procedure time. ED Disposition Clinical Impression: Anxiety Disposition: DISCHARGED TO HOME OR SELFCARE Is pt being admited?: No Condition: Stable Instructions: Generalized Anxiety Disorder (ED) Referrals: CORY KAM MD [Referring] - 3-5 Days
== END 2016-07-14 10:13 | disposition home or self-care (01) ==
LOC: ED 09:02
DX: F41.9 Anxiety disorder, unspecified (principal); K21.9 Gastro-esophageal reflux disease without esophagitis; N83.209 Unspecified ovarian cyst, unspecified side; F17.200 Nicotine dependence, unspecified, uncomplicated; Z88.0 Allergy status to penicillin; Z88.8 Allergy status to other drugs, medicaments and biological substances
CPT/HCPCS: 99282

== ENCOUNTER 2016-07-17 15:25 | Emergency (ER) | payer MEDICAID ==
[2016-07-17] MEDS ORDERED: NACL 0.9% 1000 ML 1,000 ML IV ONE (17:39)
[2016-07-17 17:46] LABS: Basophils % (Auto) 0.4 % (0.0-1.8); Eosinophils % (Auto) 1.2 % (0.0-4.3); Hematocrit 38.3 % (30.3-42.9); Hemoglobin 12.2 gm/dl (10.1-14.3); Mean Corpuscular HGB Conc 32 % (30-34); Mean Corpuscular Hemoglobin 28 pg (28-32); Mean Corpuscular Volume 87 fl (79-97); Platelet Count 186 K/mm3 (140-440); Red Cell Distribution Width 14.8 % (13.2-15.2); White Blood Count 4.6 K/mm3 (4.5-11.0)
[2016-07-17 18:05] LABS: Alanine Aminotransferase 11 units/L (7-56); Albumin/Globulin Ratio 1.4 %; Alkaline Phosphatase 100 units/L (35-129); Anion Gap 16 mmol/L; BUN/Creatinine Ratio 16.66; Bilirubin,Total < 0.20 mg/dL (0.1-1.2); Blood Urea Nitrogen 10 mg/dL (7-17); Calcium 8.5 mg/dL (8.4-10.2); Carbon Dioxide 23 mmol/L (22-30); Glucose 95 mg/dL (65-100); Potassium 4.2 mmol/L (3.6-5.0); Sodium 138 mmol/L (137-145); Total Protein 6.9 g/dL (6.3-8.2)
[2016-07-17 18:58] VITALS: BP 118/67
--- NOTE | 2016-07-17 20:03 | Emergency Department Report ---
ED General Adult HPI - General Chief complaint: Dizziness Stated complaint: DEHYDRATED Time Seen by Provider: 07/17/16 17:33 Source: patient, EMS Mode of arrival: Stretcher Limitations: No Limitations - History of Present Illness Initial comments: [facility]. She has been told not to take her propranolol. However she did her own I presume Internet research and decided that she would need herself off of it dropping her dose from 10 mg to 5 mg a day. She was complaining of dizziness. Apparently EMS responded to the [facility] and found her to be somewhat orthostatic. She was brought to this facility for further evaluation. She had no active complaints at the time of my evaluation. She did express a concern about stopping her propranolol. -: hour(s) Severity scale (0 -10): 0 Associated Symptoms: denies other symptoms - Related Data Home Medications Medication Instructions Recorded Confirmed Last Taken Divalproex Dr [DepaKOTE DR] 500 mg PO QHS 07/01/16 07/01/16 06/30/16 Propranolol [Inderal] 10 mg PO ONCE 07/01/16 07/01/16 07/01/16 Sertraline [Zoloft] 25 mg PO QDAY 07/01/16 07/01/16 07/01/16 Previous Rx's Medication Instructions Recorded Last Taken Type Nitrofurantoin Mer[place]ether/M-Cryst 100 mg PO Q12HR #14 capsule 07/01/16 Unknown Rx [Macrobid CAP] HYDROcodone/APAP 5-325 [Holbrook 1 - 2 each PO Q6HR PRN #14 tablet 07/11/16 Unknown Rx 5/325] Ibuprofen [Motrin 800 MG tab] 800 mg PO Q8HR PRN #20 tablet 07/11/16 Unknown Rx Allergies Allergy/AdvReac Type Severity Reaction Status Date / Time paroxetine HCl [From Paxil] Allergy Itching Verified 07/11/16 10:48 Penicillins Allergy Swelling Verified 07/11/16 10:48 ED Review of Systems ROS: Stated complaint: DEHYDRATED Other details as noted in HPI Constitutional: denies: chills, fever Eyes: denies: eye pain, eye discharge, vision change ENT: denies: ear pain, throat pain Respiratory: denies: cough, shortness of breath, wheezing Cardiovascular: denies: chest pain, palpitations Endocrine: no symptoms reported Gastrointestinal: denies: abdominal pain, nausea, diarrhea Genitourinary: denies: urgency, dysuria, discharge Musculoskeletal: denies: back pain, joint swelling, arthralgia Skin: denies: rash, lesions Neurological: denies: headache, weakness, paresthesias Psychiatric: denies: anxiety, depression Hematological/Lymphatic: denies: easy bleeding, easy bruising ED Past Medical Hx - Past Medical History Hx GERD: Yes Hx Psychiatric Treatment: Yes (anxiety) Additional medical history: palpations, ovarian cyst - Surgical History Additional Surgical History: c-sectionx2. skin graft to head - Social History Smoking Status: Never Smoker Substance Use Type: None - Medications Home Medications: Home Medications Medication Instructions Recorded Confirmed Last Taken Type Divalproex Dr [DepaKOTE DR] 500 mg PO QHS 07/01/16 07/01/16 06/30/16 History Nitrofurantoin [place]/M-Cryst 100 mg PO Q12HR #14 capsule 07/01/16 Unknown Rx [Macrobid CAP] Propranolol [Inderal] 10 mg PO ONCE 07/01/16 07/01/16 07/01/16 History Sertraline [Zoloft] 25 mg PO QDAY 07/01/16 07/01/16 07/01/16 History HYDROcodone/APAP 5-325 [Holbrook 1 - 2 each PO Q6HR PRN #14 tablet 07/11/16 Unknown Rx 5/325] Ibuprofen [Motrin 800 MG tab] 800 mg PO Q8HR PRN #20 tablet 07/11/16 Unknown Rx ED Physical Exam - General Limitations: No Limitations ED Course Vital Signs 07/17/16 07/17/16 15:30 18:57 Temperature 98.3 F 97.9 F Pulse Rate 95 H 98 H Respiratory 16 Rate Blood Pressure 112/76 Blood Pressure 118/67 [Right] O2 Sat by Pulse 98 100 Oximetry - Reevaluation(s) Reevaluation #1: Symptoms resolved. Patient given IV fluid. States ready to go home. 07/17/16 20:05 ED Medical Decision Making - Lab Data Result diagrams: 07/17/16 17:18 07/17/16 17:18 Laboratory Results - last 24 hr 07/17/16 07/17/16 17:18 17:18 WBC 4.6 RBC 4.40 Hgb 12.2 Hct 38.3 MCV 87 MCH 28 MCHC 32 RDW 14.8 Plt Count 186 Lymph % (Auto) 24.8 Meriwether % (Auto) 11.5 H Eos % (Auto) 1.2 Baso % (Auto) 0.4 Lymph # 1.1 L Mer[place]ether # 0.5 Eos # 0.1 Baso # 0.0 Seg Neutrophils % 62.1 Seg Neutrophils # 2.9 Carbon Dioxide 23 BUN 10 Creatinine 0.6 L Estimated GFR > 60 BUN/Creatinine Ratio 16.66 Glucose 95 Calcium 8.5 Total Bilirubin < 0.20 AST 12 ALT 11 Alkaline Phosphatase 100 Total Protein 6.9 Albumin 4.0 Albumin/Globulin Ratio 1.4 NA 138 K 4.2 CL 103 AG 16 Critical care attestation.: If time is entered above; I have spent that time in minutes in the direct care of this critically ill patient, excluding procedure time. ED Disposition Clinical Impression: Orthostatic hypotension Adverse effects of medication Qualifiers: Encounter type: initial encounter Qualified Code(s): T88.7XXA - Unspecified adverse effect of drug or medicament, initial encounter Disposition: DISCHARGED TO HOME OR SELFCARE Is pt being admited?: No Does the pt Need Aspirin: No Condition: Stable Instructions: Hypotension (ED) Additional Instructions: Her blood pressure is too low to take propranolol. Please discontinue this medication as has been previously recommended by physician. Return any acute change or problem. Follow-up with a primary care provider. Referrals: PRIMARY MD ARMEN [Primary Care Provider] - 2-3 Days Time of Disposition: 20:05
== END 2016-07-17 20:25 | disposition home or self-care (01) ==
LOC: ED 15:25
DX: I95.2 Hypotension due to drugs (principal); T88.7XXA Unspecified adverse effect of drug or medicament, initial encounter; K21.9 Gastro-esophageal reflux disease without esophagitis; F41.9 Anxiety disorder, unspecified; Z88.0 Allergy status to penicillin; Z88.8 Allergy status to other drugs, medicaments and biological substances
CPT/HCPCS: 36415; 80053; 85025; 96360; 99284; J7030

== ENCOUNTER 2016-07-18 08:35 | Emergency (ER) | payer MEDICAID ==
[2016-07-18 13:58] VITALS: BP 117/70
--- NOTE | 2016-07-21 09:49 | ED Elopement Review ---
ED Pt Elopement review - Call Back decision Pt Call Back Decision: No action required
== END 2016-07-18 14:10 | disposition left against medical advice (07) ==
LOC: ED 08:35
DX: F41.9 Anxiety disorder, unspecified (principal); I95.9 Hypotension, unspecified; Z53.21 Procedure and treatment not carried out due to patient leaving prior to being seen by health care provider